=== PATIENT | female | born 1945 | race Caucasian/White ===

== ENCOUNTER → 2017-01-30 | Outpatient (CLI) | payer MEDICARE ==
--- NOTE | 2017-01-30 23:32 | MR ---
EXAMINATION TYPE: MR knee RT wo con DATE OF EXAM: 01/30/2017 COMPARISON: NONE HISTORY: Right Knee pain from going up stairs 3 days ago TECHNIQUE: Multiplanar, multisequence imaging of the right knee is performed without IV contrast. FINDINGS: There is a [id number] knee joint effusion. The anterior and posterior cruciate ligaments are in tact. The collateral ligaments are intact. There is mild spurring of the medial femoral and tibial co ndyles. There is minimal subchondral increased signal in the medial femoral and tibial condyles consi stent with early degenerative cyst formation. The lateral meniscus is intact. There is increased sign al within a large area of the posterior horn of the medial meniscus. There is some thinning and anter ior displacement of the anterior horn of the medial meniscus. There is no evidence of a fracture. IMPRESSION: Knee joint effusion. Complex intrasubstance tear of the posterior horn medial meniscus. osteoarthrit ic changes in the medial joint space. No fracture. Degenerative thinning of the anterior horn medial meniscus.
== END | disposition home or self-care (01) ==
LOC: RADMRIMAIN 17:32
PROVIDERS: ATTEND Family Medicine
DX: S83.231A Complex tear of medial meniscus, current injury, right knee, initial encounter (principal); M17.11 Unilateral primary osteoarthritis, right knee

== ENCOUNTER → 2017-02-20 | Outpatient (CLI) | payer MEDICARE ==
--- NOTE | 2017-02-20 10:16 | MM ---
Reason for exam: screening (asymptomatic). Last mammogram was performed 1 year ago. History: Patient is postmenopausal. Took estrogen for 6 years 2 months. Physical Findings: A clinical breast exam by your physician is recommended on an annual basis and results should be correlated with mammographic findings. MG 3D Screening Mammo W/Cad Bilateral CC and MLO view(s) were taken. Prior study comparison: February 15, 2016, bilateral MG 3d screening mammo w/cad. January 06, 2015, bilateral MG diagnostic mammo w CAD NATALIE. There are scattered fibroglandular densities. Finding: There are typically benign vascular, round calcifications. There is a chronic nodularity bilaterally. There is no dominant lesion. No significant changes in finding since February 15, 2016 and January 06, 2015. ASSESSMENT: Benign, BI-RAD 2 RECOMMENDATION: Routine screening mammogram of both breasts in 1 year.
== END | disposition home or self-care (01) ==
LOC: RADMAMWWP 09:40
PROVIDERS: ATTEND Obstetrics & Gynecology
DX: Z12.31 Encounter for screening mammogram for malignant neoplasm of breast (principal); Z13.220 Encounter for screening for lipoid disorders; Z13.1 Encounter for screening for diabetes mellitus; Z13.29 Encounter for screening for other suspected endocrine disorder
CPT/HCPCS: 84439; 80061; 82947; 84443; 77063; G0202

== ENCOUNTER → 2017-03-05 | Outpatient (CLI) | payer MEDICARE ==
[2017-03-05 11:36] LABS: EKG EKG PERFORMED
[2017-03-05 12:35] LABS: Anion Gap 9 mmol/L; Carbon Dioxide 24 mmol/L (22-30); Chloride 105 mmol/L (98-107); Potassium 4.2 mmol/L (3.5-5.1); Sodium 138 mmol/L (137-145)
[2017-03-05 12:41] LABS: Basophils # (A) 0.1 k/uL (0-0.2); Basophils % (A) 1 %; CH 31.6; CHCM 34.8; Eosinophils # (A) 0.1 k/uL (0-0.7); Eosinophils % (A) 1 %; HCT 39.9 % (34.0-46.0); HDW 2.54; HGB 13.3 gm/dL (11.4-16.0); Luc # (Auto) 0.11; Luc % (Auto) 1; Lymphocytes # (A) 1.9 k/uL (1.0-4.8); Lymphocytes % (A) 18 %; MCH 30.3 pg (25.0-35.0); MCHC 33.3 g/dL (31.0-37.0); Mean Platelet Volume 7.2; Monocytes # (A) 0.4 k/uL (0-1.0); Monocytes % (A) 4 %; Neutrophils # (A) 8.3 k/uL (1.3-7.7); Neutrophils % (A) 76 %; RBC 4.39 m/uL (3.80-5.40); RDW 13.8 % (11.5-15.5); WBC 10.8 k/uL (3.8-10.6); WBC (Perox) 11.33
== END | disposition home or self-care (01) ==
LOC: LABPAT 11:25
PROVIDERS: ATTEND Orthopaedic Surgery
DX: Z01.818 Encounter for other preprocedural examination (principal); Z01.812 Encounter for preprocedural laboratory examination; M23.91 Unspecified internal derangement of right knee
CPT/HCPCS: 80051; 85025; 93005

== ENCOUNTER 2017-03-07 07:33 | Day surgery (SDC) | payer MEDICARE ==
[2017-03-06 08:34] VITALS: BMI 28.8
--- NOTE | 2017-03-06 12:38 | HP ---
CHIEF COMPLAINT: Right knee pain. The patient is a 71 -year-old female who presents with persistent progressive right knee pain after an injury on 01/29/2017. She twisted her knee while playing golf. She notes persistent medial pain and giving way ever since. She has been taking ibuprofen and had an injection with only partial temporary relief. She notes she is limping. PAST MEDICAL HISTORY: Negative. PAST SURGICAL HISTORY: Significant for hysterectomy. Current medications: Ibuprofen. She denies drug allergies. FAMILY HISTORY: Significant for renal disease. SOCIAL HISTORY: Negative for current tobacco or alcohol use. 16 point review of systems otherwise reviewed and is not contributory. On examination, the patient is approximately 5 foot 3 inches. 160 pounds of mesomorphic habitus. HEENT: Exam is nonfocal. Neck is supple. She has pain with passive motion of the right hip. Straight leg raise is negative. Active motion of the right knee -6 to 125 degrees of flexion. She has a moderate effusion. Collaterals are stable. Kapil is negative. McMurrays elicits medial pain. Her distal neurovascular exam appears intact in the right lower extremity. Weightbearing, notch, lateral and merchant views of the right knee obtained in the office show moderate medial compartment narrowing. MRI report from 2016 of the right knee shows a posterior medial meniscal tear. IMPRESSION: 1. Right knee internal derangement with symptomatic medial meniscal tear. 2. Right knee moderate medial compartment osteoarthrosis. RECOMMENDATIONS: I talked to the patient at length regarding her treatment options. At this point, she remains quite symptomatic despite conservative measures. After thorough discussion, she opted to proceed with surgery. We will plan to proceed with arthroscopic evaluation with probable partial medial meniscectomy. We will likely perform that as an outpatient procedure. Risks and benefits were discussed at length in Laymans terms. FLORENTIN
[~2017-03-07 07:33] MED LIST: DEXAMETHASONE SOD PHOSPHATE 10 MG/ML 1 ML VIAL IV ONE; LIDOCAINE 1% 20 ML VIAL (10MG/ML) FOR IV START INTRADERMA PRN; ONDANSETRON 4 MG/2 ML VIAL IVP ONE; SCOPOLAMINE 1.5MG/72HR PATCH TRANSDERM ONE; ceFAZolin 2 GM in SODIUM CHLORIDE 0.9% 100 ML IVPB ONE
[2017-03-07] MEDS: LACTATED RINGERS 1,000 ML IV SCH ×2 (08:19→08:50)
[2017-03-07] MEDS ORDERED: MIDAZOLAM 2 MG/2 ML VIAL IVP ONE (08:30)
[2017-03-07] MEDS ORDERED: PROPOFOL 10 MG/ML 20 ML VIAL IV ONE (08:52)
[2017-03-07] MEDS ORDERED: MIDAZOLAM 2 MG/2 ML VIAL ONE (08:52)
[2017-03-07] MEDS ORDERED: LIDOCAINE 1% INJ 10MG/ML (20 ML MDV) ONE (08:52)
[2017-03-07] MEDS ORDERED: fentaNYL (PF) 50 MCG/ML 2 ML AMP ONE (08:52)
[2017-03-07] MEDS ORDERED: EPINEPHrine (PF) 1 ML in SODIUM CHLORIDE 0.9% IRRIGATIO 3,000 ML IRRIGATION ONE ×4 (09:15)
[2017-03-07] MEDS: HYDROmorphone 1 MG/ML 1 ML SYRINGE IVP PRN ×4 (09:45→10:09)
--- NOTE | 2017-03-07 09:48 | P.OP ---
Date of Procedure: 03/07/17 Preoperative Diagnosis: Right knee internal derangement Postoperative Diagnosis: Right knee posterior medial meniscal tear/middle one third lateral meniscal tear /grade 2 chondral injury distal medial portion lateral femoral condyle/reactive synovitis Procedure(s) Performed: Right knee arthroscopic partial medial meniscectomy/partial lateral meniscectomy /lateral femoral chondrectomy/partial synovectomy of the medial and lateral compartments Implants: Anesthesia: GETA Surgeon: Randolph Frausto Estimated Blood Loss (ml): 10 Pathology: none sent Condition: stable Disposition: PACU Indications for Procedure: The patient's a 71-year-old female presents with progressive right knee pain and mechanical symptoms for the past several months despite conservative measures. A discussion of the risks and benefits of operative intervention versus continued conservative measures was made with the patient. She opted to proceed with surgery. Operative risks to include infection, neurovascular injury, development of blood clots, possible incomplete resolution of symptoms, possible worsening symptoms and need for subsequent procedures was discussed. Informed consent was obtained. Operative Findings: As below Description of Procedure: The patient was brought to the operating room, and after induction of general anesthesia the right lower extremity was prepped and draped in normal fashion. A superior lateral portals made through a 3 mm skin incision superior and lateral to the patella. This was used for outflow. A moderate effusion was encountered. A lateral portal was made through a 5 mm vertical skin incision lateral to the patella tendon above the joint line. Diagnostic arthroscopy was performed. A medial portal was made through a similar incision medial to the patella tendon above the joint line. On inspection the medial compartment, she was noted to have a complex oblique tear involving the posterior most aspect the medial meniscus in the white-red junction. This was not amenable to repair. This was debrided back to a stable base with straight baskets and a motorized shaver. The edges were contoured. Grade 2-3 chondral changes were noted diffusely in the medial compartment. Reactive synovitis involving the anterior medial and lateral compartments was debrided with a motorized shaver. On inspection of the lateral compartment a she was noted have an oblique tear involving middle one third of the lateral meniscus in the white-white junction. This was debrided back to stable base with straight baskets and a motorized shaver. On inspection the patellofemoral articulation, there was chondral fibrillation however no loose chondral fragments. The gutters were clear debris. The knee was then thoroughly irrigated. The portals were closed with Steri-Strips. A sterile dressing was applied in addition to a compression stocking. The patient was awoken from general anesthesia and transferred to recovery room in good condition. Blood loss was estimated 10 mL. No complications were incurred.
[2017-03-07 09:54] VITALS: TEMP 97.6
[2017-03-07] MEDS ORDERED: KETOROLAC 30 MG/ML 1 ML VIAL IVP ONE (09:56)
[2017-03-07 10:38] VITALS: RESP 16
[2017-03-07 11:20] VITALS: BP 134/70; PULSE 67
== END 2017-03-07 12:44 | disposition home or self-care (01) ==
LOC: OR 07:33
PROVIDERS: ATTEND Orthopaedic Surgery
DX: S83.241A Other tear of medial meniscus, current injury, right knee, initial encounter (principal); S83.281A Other tear of lateral meniscus, current injury, right knee, initial encounter; S83.31XA Tear of articular cartilage of right knee, current, initial encounter; M65.9 Synovitis and tenosynovitis, unspecified; M17.11 Unilateral primary osteoarthritis, right knee; Z90.710 Acquired absence of both cervix and uterus; X50.1XXA Overexertion from prolonged static or awkward postures, initial encounter; Y93.53 Activity, golf
CPT/HCPCS: 29880; J2250; J1100; J0690; J2405; J0171; J2001; J3010; J1885; J1170; J2704

== ENCOUNTER → 2018-04-16 | Outpatient (CLI) | payer MEDICARE ==
--- NOTE | 2018-04-16 13:43 | BD ---
EXAMINATION TYPE: Axial Bone Density DATE OF EXAM: 04/16/2018 COMPARISON: DEXA bone scan February 15, 2016 CLINICAL HISTORY: Postmenopausal female Height: 62 Weight: 160.7 FRAX RISK QUESTIONS: Alcohol (3 or more units per day): no Family History (Parent hip fracture): no Glucocorticoids (More than 3mos): no (Ex: prednisone, prednisolone, methylprednisolone, dexamethasone, and hydrocortisone). History of Fracture in Adulthood: no Secondary Osteoporosis: 1. Type 1 Diabetes: no 2. Hyperthyroidism: no 3. Menopause before 45: no 4. Malnutrition: no 5. Chronic liver disease: no Rheumatoid Arthritis: no Current Tobacco Use: no RISK FACTORS HISTORY OF: Family History of Osteoporosis: no Active: yes Diet low in dairy products/other sources of calcium: no Postmenopausal woman: age 54 MEDICATIONS: blood pressure , diuretic, vitamins Additional History: EXAM MEASUREMENTS: Bone mineral densitometry was performed using the [employer]. Bone mineral density as measured about the Lumbar spine is: ----- L1-L4(G/cm2): 1.279 T Score Values are as follows: ----- L2: 0.0 ----- L3: 0.9 ----- L4: 2.0 ----- L1-L4: 0.8 Bone mineral density has: decreased -3.8 % since study of: 02.15.2016 Bone mineral density about the R hip (g/cm2): 0.884 Bone mineral density about the L hip (g/cm2): 0.913 T Score values are as follows: -----R Neck: -1.1 -----L Neck: -0.9 -----R Total: -0.1 -----L Total: 0.3 Bone mineral density has: decreased -5.4 % since study of: 02.15.2016 IMPRESSION: Osteopenia (T Score between -2.5 and -1) is present femoral neck level in right hip on current study. Bone density is decreased or diminished from prior. There is now slightly increased risk of fracture and the patient may be considered for treatment. Re-Screen 2-5 years. NOTE: T-SCORE=SD OF THE YOUNG ADULT MEAN.
--- NOTE | 2018-04-16 14:04 | MM ---
Reason for exam: screening (asymptomatic). Last mammogram was performed 1 year and 2 months ago. History: Patient is postmenopausal. Took estrogen for 6 years 2 months. Physical Findings: A clinical breast exam by your physician is recommended on an annual basis and results should be correlated with mammographic findings. MG 3D Screening Mammo W/Cad Bilateral CC and MLO view(s) were taken. Prior study comparison: February 20, 2017, bilateral MG 3d screening mammo w/cad. February 15, 2016, bilateral MG 3d screening mammo w/cad. There are scattered fibroglandular densities. There are benign appearing vascular calcifications bilaterally. There is no discrete abnormality. ASSESSMENT: Benign, BI-RAD 2 RECOMMENDATION: Routine screening mammogram of both breasts in 1 year.
== END | disposition home or self-care (01) ==
LOC: RADMAMWWP 09:21
PROVIDERS: ATTEND Obstetrics & Gynecology
DX: Z12.31 Encounter for screening mammogram for malignant neoplasm of breast (principal); M85.851 Other specified disorders of bone density and structure, right thigh
CPT/HCPCS: 77063; 77067; 77080

== ENCOUNTER → 2018-06-04 | Outpatient (CLI) | payer MEDICARE ==
[2018-06-04 10:49] LABS: Potassium 3.6 mmol/L (3.5-5.1)
[2018-06-04 10:55] LABS: Prothrombin Time 9.8 sec (9.0-12.0)
[2018-06-04 10:56] LABS: Basophils # (A) 0.1 k/uL (0-0.2); Basophils % (A) 1 %; Eosinophils # (A) 0.1 k/uL (0-0.7); Eosinophils % (A) 1 %; HCT 39.5 % (34.0-46.0); HGB 13.1 gm/dL (11.4-16.0); Lymphocytes # (A) 1.8 k/uL (1.0-4.8); Lymphocytes % (A) 17 %; MCH 30.1 pg (25.0-35.0); MCHC 33.2 g/dL (31.0-37.0); MCV 90.6 fL (80.0-100.0); Mean Platelet Volume 6.4; Monocytes # (A) 0.5 k/uL (0-1.0); Monocytes % (A) 5 %; Neutrophils # (A) 8.3 k/uL (1.3-7.7); Neutrophils % (A) 76 %; Platelet Count 314 k/uL (150-450); RBC 4.35 m/uL (3.80-5.40); WBC 10.9 k/uL (3.8-10.6)
--- NOTE | 2018-06-04 11:05 | XR ---
EXAMINATION TYPE: XR chest 2V DATE OF EXAM: 06/04/2018 COMPARISON: NONE HISTORY: Presurgical clearance TECHNIQUE: Frontal and lateral views of the chest are obtained. FINDINGS: Probable calcified nodule present right upper lobe measuring only 4 mm. No pneumothorax or pleural effusion, biapical pleural thickening suspected. Cardiac mediastinal silhouette, pulmonary v ascularity and matthew within normal limits. No evident airspace disease. IMPRESSION: Possible calcified granuloma right upper lobe. No acute cardiopulmonary disease is evide nt.
== END ==
LOC: LABPAT 09:49
PROVIDERS: ATTEND Orthopaedic Surgery
DX: Z01.818 Encounter for other preprocedural examination (principal); Z01.812 Encounter for preprocedural laboratory examination
CPT/HCPCS: 36415; 71046; 80051; 85025; 85610; 87070

== ENCOUNTER → 2018-06-09 | Outpatient (CLI) | payer MEDICARE ==
[~2018-06-09] MED LIST changes: +CAFFEINE CITRATE 60 MG/3 ML VIAL ONE; -DEXAMETHASONE SOD PHOSPHATE 10 MG/ML 1 ML VIAL IV ONE; +DEXTROSE 5% IN WATER 50 ML BAG ONE; -LIDOCAINE 1% 20 ML VIAL (10MG/ML) FOR IV START INTRADERMA PRN; -ONDANSETRON 4 MG/2 ML VIAL IVP ONE; +REGADENOSON 0.4 MG/5 ML SYRINGE IV ONE; -SCOPOLAMINE 1.5MG/72HR PATCH TRANSDERM ONE; -ceFAZolin 2 GM in SODIUM CHLORIDE 0.9% 100 ML IVPB ONE
--- NOTE | 2018-06-09 11:43 | EST ---
EXERCISE STRESS DATE OF SERVICE: 06/09/2018 AGE: 73 SEX: Female HT: 5'2" WT: 155 pounds PROTOCOL: Lexiscan Cardiolite STAGE: DURATION OF EXERCISE: HEART RATE REST: 59 BLOOD PRESSURE REST: 125/66 MAXIMUM HEART RATE ACHIEVED: 72 MAXIMUM BLOOD PRESSURE: 134/57 85% MPHR: 100% MPHR: METS: INDICATIONS: Abnormal EKG CLINICAL INFORMATION: Baseline EKG shows sinus rhythm, normal axis, normal intervals. Patient was given intravenous Lexiscan as per protocol. Did not have chest pain or diagnostic ST-segment depression. CONCLUSIONS: 1. Negative stress test by EKG criteria. 2. Cardiolite portion of the stress test will be reported separately. MMODL / IJN: [id number] /
--- NOTE | 2018-06-09 16:28 | NM ---
EXAMINATION TYPE: NM stress lexiscan cardiolite DATE OF EXAM: 06/09/2018 COMPARISON: NONE HISTORY: Abnormal EKG TECHNIQUE: After the intravenous administration of 9.86 mCi Tc 99m Sestamibi - Cardiolite resting SP ECT images acquired 45 minutes post injection. The patient received 0.4mg Lexiscan, 24.3 mCi Tc 99m Sestamibi - Stress images obtained [address] injection FINDINGS: No fixed or reversible perfusion defects are evident. Gated wall motion is unremarkable. Ejection fra ction of 54% is normal. IMPRESSION: No stress-induced ischemic changes.
== END | disposition home or self-care (01) ==
LOC: RADNMMAIN 07:47
PROVIDERS: ATTEND Family Medicine
DX: R94.31 Abnormal electrocardiogram [ECG] [EKG] (principal)
CPT/HCPCS: 93017; 78452; A9500; J0706; J2785

== ENCOUNTER → 2019-05-11 | Outpatient (CLI) | payer MEDICARE ==
[2019-05-11 11:28] LABS: T4, Free (Free Thyroxine) 0.98 ng/dL (0.78-2.19)
--- NOTE | 2019-05-11 12:06 | MM ---
Reason for exam: screening (asymptomatic). Last mammogram was performed 1 year and 1 month ago. History: Patient is postmenopausal. Took estrogen for 6 years 2 months. Physical Findings: A clinical breast exam by your physician is recommended on an annual basis and results should be correlated with mammographic findings. MG 3D Screening Mammo W/Cad Bilateral CC, MLO, and XCCL view(s) were taken. Prior study comparison: April 16, 2018, bilateral MG 3d screening mammo w/cad. February 20, 2017, bilateral MG 3d screening mammo w/cad. The breast tissue is heterogeneously dense. This may lower the sensitivity of mammography. Benign appearing vascular bilateral calcifications. There is a partially obscured right upper outer quadrant far posterior depth mass, likely lymph node. This was seen on 2018 exam. No suspicious additional abnormality. ASSESSMENT: Incomplete: need additional imaging evaluation, BI-RAD 0 RECOMMENDATION: Ultrasound of the right breast. (upper outer quadrant) [facility] will attempt to contact patient to return for ultrasound.
== END | disposition home or self-care (01) ==
LOC: RADMAMWWP 09:30
PROVIDERS: ATTEND Obstetrics & Gynecology
DX: Z12.31 Encounter for screening mammogram for malignant neoplasm of breast (principal); Z13.220 Encounter for screening for lipoid disorders; Z13.1 Encounter for screening for diabetes mellitus
CPT/HCPCS: 36415; 77063; 77067; 80061; 82947; 84439; 84443

== ENCOUNTER → 2019-05-27 | Outpatient (CLI) | payer MEDICARE ==
--- NOTE | 2019-05-27 11:05 | USB ---
Reason for exam: additional evaluation requested from abnormal screening. History: Patient is postmenopausal. Took estrogen for 6 years 2 months. Physical Findings: Nurse did not find any significant physical abnormalities on exam. US Breast Workup Limited RT Right limited breast ultrasound including focal area of concern, retroareolar and axilla demonstrates a 0.3 x 0.3 x 1.3cm lesion at 12 o'clock. These results were verbally communicated with the patient and result sheet given to the patient on 05/27/19. ASSESSMENT: Benign, BI-RAD 2 RECOMMENDATION: Return to routine screening mammogram schedule for both breasts.
== END | disposition home or self-care (01) ==
LOC: RADUSWWP 09:53
PROVIDERS: ATTEND Obstetrics & Gynecology
DX: R92.8 Other abnormal and inconclusive findings on diagnostic imaging of breast (principal)

== ENCOUNTER → 2020-05-17 | Outpatient (CLI) | payer MEDICARE ==
--- NOTE | 2020-05-18 11:43 | MM ---
Reason for exam: screening (asymptomatic). Last mammogram was performed 1 year ago. History: Patient is postmenopausal. Took estrogen for 6 years 2 months. Physical Findings: A clinical breast exam by your physician is recommended on an annual basis and results should be correlated with mammographic findings. MG 3D Screening Mammo W/Cad Bilateral CC and MLO view(s) were taken. Prior study comparison: May 11, 2019, bilateral MG 3d screening mammo w/cad. April 16, 2018, bilateral MG 3d screening mammo w/cad. February 20, 2017, bilateral MG 3d screening mammo w/cad. February 15, 2016, bilateral MG 3d screening mammo w/cad. There is chronic nodularity bilaterally. No significant changes when compared with prior studies. ASSESSMENT: Benign, BI-RAD 2 RECOMMENDATION: Routine screening mammogram of both breasts in 1 year.
--- NOTE | 2020-05-18 20:29 | BD ---
EXAMINATION TYPE: Axial Bone Density DATE OF EXAM: 05/17/2020 COMPARISON: 04.16.2018 CLINICAL HISTORY: 75 YR OLD FEMALE....ICD-10 CODE: Z78.0 POST ROJAS, Z13.82, M85.851 Height: 61.3 Weight: 160 FRAX RISK QUESTIONS: Current Tobacco Use: NONE NOW RISK FACTORS HISTORY OF: Active: YES Postmenopausal woman: YES AT 53 Take estrogen and/or progesterone medications: FOR ONLY 6 YRS IN THE PAST Hyperparathyroidism: NO Adrenal Insufficiency: NO MEDICATIONS: Additional Medications: BP MEDS, ZOLOFT, REFLUX MEDS NEEDED, CALCIUM AND VIT D, Additional History: RENAL, HX OF KIDNEY STONES, HYST AFTER ROJAS, BORDERLINE DIABETIC, EXAM MEASUREMENTS: Bone mineral densitometry was performed using the [employer]. Bone mineral density as measured about the Lumbar spine is: ----- L1-L4(G/cm2): 1.445 T Score Values are as follows: ----- L1: 1.4 ----- L2: 1.2 ----- L3: 2.3 ----- L4: 3.3 ----- L1-L4: 2.2 Bone mineral density has: Increased 12.2% since study of: 04.16.2018 Bone mineral density about the R hip (g/cm2): 1.021 Bone mineral density about the L hip (g/cm2): 1.064 T Score values are as follows: -----R Neck: -0.7 -----L Neck: -0.5 -----R Total: 0.1 -----L Total: 0.4 Bone mineral density has: Increased 2.6% since study of: 04.16.2018 FRAX%s: THERE IS A 9.1% CHANCE FOR A MAJOR OSTEOPOROTIC FX AND A 1.2% FOR HIP.....PROBABILITY FOR F X IN 10 YRS TIME IMPRESSION: Normal (Values between +1 and -1 indicate normal bone mass). Consider repeating this study in 5 year s or sooner if there is some new clinical indication. NOTE: T-SCORE=SD OF THE YOUNG ADULT MEAN.
== END | disposition home or self-care (01) ==
LOC: RADMAMWWP 10:44
PROVIDERS: ATTEND Obstetrics & Gynecology
DX: Z12.31 Encounter for screening mammogram for malignant neoplasm of breast (principal); Z13.820 Encounter for screening for osteoporosis; M85.851 Other specified disorders of bone density and structure, right thigh; M85.852 Other specified disorders of bone density and structure, left thigh; Z78.0 Asymptomatic menopausal state
CPT/HCPCS: 77063; 77067; 77080

== ENCOUNTER → 2021-05-08 | Outpatient (CLI) | payer MEDICARE ==
--- NOTE | 2021-05-08 12:47 | ECHOF ---
Referral Reason:R94.31 abnormal EKG MEASUREMENTS -------- HEIGHT: 157.5 cm WEIGHT: 70.3 kg BP: RVIDd: 3.2 cm (< 3.3) IVSd: 1.4 cm (0.6 - 1.1) LVIDd: 3.8 cm (3.9 - 5.3) LVPWd: 1.2 cm (0.6 - 1.1) IVSs: 1.4 cm LVIDs: 2.8 cm LVPWs: 1.6 cm LAESV Index (A-L): 20.23 ml/m Ao Diam: 2.9 cm (2.0 - 3.7) AV Cusp: 1.1 cm (1.5 - 2.6) LA Diam: 3.6 cm (2.7 - 3.8) MV EXCURSION: 16.920 mm (> 18.000) MV EF SLOPE: 79 mm/s (70 - 150) EPSS: 0.3 cm MV E Dev: 0.73 m/s MV DecT: 252 ms MV A Dev: 1.03 m/s MV E/A Ratio: 0.71 AV maxP.69 mmHg AV meanP.24 mmHg RAP: 5.00 mmHg RVSP: 32.55 mmHg FINDINGS -------- Sinus rhythm. This was a technically adequate study. The left ventricular size is normal. There is mild concentric left ventricular hypertrophy. Overa ll left ventricular systolic function is normal with, an EF between 55 - 60 %. The diastolic fillin g pattern is normal for the age of the patient 13.07. The right ventricle is normal in size. Normal LA size by volume 22+/-6 ml/m2. The right atrial size is normal. Interatrial and interventricular septum intact. There is moderate aortic valve sclerosis. There is no evidence of aortic regurgitation. There is mild aortic stenosis present. Peak/mean gradient across the Aortic Valve is 23.69mmHg / 14.24mmHg. Mild mitral regurgitation is present. Mild tricuspid regurgitation present. There is no evidence of pulmonary hypertension. The right v entricular systolic pressure, as measured by Doppler, is 32.55mmHg. Trace/mild (physiologic) pulmonic regurgitation. The aortic root size is normal. Normal inferior vena cava with normal inspiratory collapse consistent with estimated right atrial pre ssure of 5 mmHg. There is no pericardial effusion. CONCLUSIONS -------- 1. The left ventricular size is normal. 2. There is mild concentric left ventricular hypertrophy. 3. Overall left ventricular systolic function is normal with, an EF between 55 - 60 %. 4. The diastolic filling pattern is normal for the age of the patient 13.07 5. There is moderate aortic valve sclerosis. 6. There is mild aortic stenosis present. 7. Peak/mean gradient across the Aortic Valve is 23.69mmHg / 14.24mmHg. 8. Mild mitral regurgitation is present. 9. Mild tricuspid regurgitation present. 10. Trace/mild (physiologic) pulmonic regurgitation. STAFFING COORDINATOR: Gem Veronica RDCS
== END | disposition home or self-care (01) ==
LOC: RADECHMAIN 08:23
PROVIDERS: ATTEND Family Medicine
DX: I51.7 Cardiomegaly (principal); I35.0 Nonrheumatic aortic (valve) stenosis; I35.8 Other nonrheumatic aortic valve disorders; I34.0 Nonrheumatic mitral (valve) insufficiency; R94.31 Abnormal electrocardiogram [ECG] [EKG]
CPT/HCPCS: 93306

== ENCOUNTER → 2021-06-13 | Outpatient (CLI) | payer MEDICARE ==
--- NOTE | 2021-06-13 09:16 | MM ---
Reason for exam: screening (asymptomatic). Last mammogram was performed 1 year and 1 month ago. History: Patient is postmenopausal. Took estrogen for 6 years 2 months. Physical Findings: A clinical breast exam by your physician is recommended on an annual basis and results should be correlated with mammographic findings. MG 3D Screening Mammo W/Cad Bilateral CC and MLO view(s) were taken. Prior study comparison: May 17, 2020, bilateral MG 3d screening mammo w/cad. May 11, 2019, bilateral MG 3d screening mammo w/cad. There are scattered fibroglandular densities. There is chronic nodularity in the right breast. Benign vascular calcifications. No significant changes when compared with prior studies. ASSESSMENT: Benign, BI-RAD 2 RECOMMENDATION: Routine screening mammogram of both breasts in 1 year.
== END | disposition home or self-care (01) ==
LOC: RADMAMWWP 07:30
PROVIDERS: ATTEND Obstetrics & Gynecology
DX: Z12.31 Encounter for screening mammogram for malignant neoplasm of breast (principal)
CPT/HCPCS: 77063; 77067

== ENCOUNTER → 2022-07-30 | Outpatient (CLI) | payer MEDICARE ==
--- NOTE | 2022-07-30 10:49 | MM ---
Reason for Exam: Screening (asymptomatic). Last mammogram was performed 1 year(s) and 1 month(s) ago. Patient History: Menarche at age 11. First Full-Term at age 16. Hysterectomy at age 53. Postmenopausal. Estrogen for 6 years, 2 months, until age 62. Risk Values: Laina 5 year model risk: 1.2%. NCI Lifetime model risk: 2.2%. Prior Study Comparison: 02/20/2017 Bilateral Screening Mammogram, [facility]. 04/16/2018 Bilateral Screening Mammogram, [facility]. 05/11/2019 Bilateral Screening Mammogram, [facility]. 05/17/2020 Bilateral Screening Mammogram, [facility]. 06/13/2021 Bilateral Screening Mammogram, [facility]. Tissue Density: There are scattered fibroglandular densities. Findings: Analyzed By CAD. Chronic nodularity anterior right breast. Scattered benign redemonstrated. Unchanged scattered areas of asymmetric density left breast. No significant change from prior exams. Overall Assessment: Benign, BI-RAD 2 Management: Screening Mammogram of both breasts in 1 year. 1. Patient should continue monthly self breast exams. 2. A clinical breast exam by your physician is recommended on an annual basis. 3. This exam should not preclude additional follow-up of suspicious palpable abnormalities. Electronically signed and approved by: Surekha Tavares M.D. Radiologist
--- NOTE | 2022-07-30 17:49 | BD ---
EXAMINATION TYPE: Axial Bone Density DATE OF EXAM: 07/30/2022 CLINICAL HISTORY: 77 years year old Female. ICD-10 CODE: Z78.0 N95.1 POST ROJAS WITHOUT HRT, POST ME NO SYMP Height: 5 FT 2 IN Weight: 161 FRAX RISK QUESTIONS: Alcohol (3 or more units per day): NO Family History (Parent hip fracture): NO Glucocorticoids (More than 3mos): NO (Ex: prednisone, prednisolone, methylprednisolone, dexamethasone, and hydrocortisone). History of Fracture in Adulthood: NO Secondary Osteoporosis: 1. Type 1 Diabetes: NO 2. Hyperthyroidism: NO 3. Menopause before 45: NO 4. Malnutrition: NO 5. Chronic liver disease: NO Rheumatoid Arthritis: NO Current Tobacco Use: NO RISK FACTORS HISTORY OF: Surgery to Spine/Hip(right/left)/Wrist (right/left): NO Family History of Osteoporosis: NO Active: YES Diet low in dairy products/other sources of calcium: NO Postmenopausal woman: YES Take estrogen and/or progesterone medications: NO LONGER Lost more than 2 inches in height since high school: NO Frequent falls: NO Poor Health: GOOD Hyperparathyroidism: NO Adrenal Insufficiency: NO MEDICATIONS: Additional Medications: HYDROCHLOROT, METOPROLOL, ROSUVASTATIN ,NORCO, IBUPROFEN, CALCIUM, Additional History: EXAM MEASUREMENTS: Bone mineral densitometry was performed using the [facility]. Bone mineral density as measured about the Lumbar spine is: ----- L1-L4(G/cm2): 1.321 T Score Values are as follows: ----- L1: -0.2 ----- L2: 0.7 ----- L3: 1.2 ----- L4: 2.3 ----- L1-L4: 1.2 Bone mineral density has: DECREASED -7.3 % since study of: 2019 Bone mineral density about the R hip (g/cm2): 0.906 Bone mineral density about the L hip (g/cm2): 0.965 T Score values are as follows: -----R Neck: -1.0 -----L Neck: -0.5 -----R Total: -0.2 -----L Total: 0.1 Bone mineral density has: DECREASED -3.7 % since study of: 2019 FRAX%s: The graph provided illustrates a 10.6 % chance for a major osteoporotic fx and a 1.8 % chance for the hips probability for fx in 10 years time. IMPRESSION: Normal (Values between +1 and -1 indicate normal bone mass). Note that measurements at the right hip are bordering on osteopenia. Consider repeating this study in 5 years or sooner if there is some new clinical indication. NOTE: T-SCORE=SD OF THE YOUNG ADULT MEAN.
== END | disposition home or self-care (01) ==
LOC: RADBDWWP 09:44
PROVIDERS: ATTEND Obstetrics & Gynecology
DX: Z12.31 Encounter for screening mammogram for malignant neoplasm of breast (principal); M85.851 Other specified disorders of bone density and structure, right thigh; Z78.0 Asymptomatic menopausal state
CPT/HCPCS: 77063; 77067; 77080

== ENCOUNTER → 2023-01-23 | Outpatient (CLI) | payer MEDICARE ==
--- NOTE | 2023-01-23 14:19 | XR ---
EXAMINATION TYPE: XR Hip Limited 2 views LT, XR knee limited 2 views LT, XR lumbar spine 3 views DATE OF EXAM: 01/23/2023 Comparison: None Clinical History: 77-year-old female R52 pain Findings: Left hip: There is severe endstage, [id number] degenerative change in the left hip with complete loss of supe rolateral cartilage joint space. Subchondral sclerosis and marginal spurring is present. Pelvis limit s. No acute fracture or dislocation. Left knee: There is meniscal chondrocalcinosis. There may be mild joint space narrowing in the medial compartmen t. Trace joint effusion nonspecific. Extensor mechanism is intact. No acute fracture, subluxation, or dislocation. Lumbar spine: 5 lumbar type vertebral bodies. Hypertrophic facet arthropathy mid to lower lumbar spine with a degen erative grade 1, nearly grade 2 anterolisthesis at L4-L5. There is vascular disease degenerative thin param of the interspinous ligaments in the lower lumbar spine. Mild multilevel degenerative disc disea se with disc bulging and mild endplate spondylosis. Vertebral body heights are preserved. Atheroscler otic calcifications throughout the abdominal aorta. Impression: Lumbar spine: 1. Advanced hypertrophic facet arthropathy with a degenerative grade 1, nearly grade 2 anterolisthesi s at L4-L5. 2. Mild degenerative disc disease throughout the lumbar spine. 3. Baastrup's disease. Left hip: 4. Severe, end-stage [id number] left hip OA. No acute osseous abnormality seen. Left knee: 5. Mild degenerative joint space narrowing in the medial compartment. Trace knee joint effusion nonsp ecific, probably reactive. 6. Meniscal chondrocalcinosis which can be idiopathic. In this case, less likely related to CPPD. 7. No acute osseous abnormality seen.
== END | disposition home or self-care (01) ==
LOC: RADXRMAIN 12:07
PROVIDERS: ATTEND Family Medicine
DX: M47.816 Spondylosis without myelopathy or radiculopathy, lumbar region (principal); M43.16 Spondylolisthesis, lumbar region; M51.36 Other intervertebral disc degeneration, lumbar region; M48.26 Kissing spine, lumbar region; M16.12 Unilateral primary osteoarthritis, left hip; M17.12 Unilateral primary osteoarthritis, left knee; M11.262 Other chondrocalcinosis, left knee
CPT/HCPCS: 72100; 73501

== ENCOUNTER → 2023-03-11 | Outpatient (CLI) | payer MEDICARE ==
--- NOTE | 2023-03-12 22:52 | MR ---
EXAMINATION TYPE: MR hip LT wo con DATE OF EXAM: 03/11/2023 COMPARISON: Radiograph 01/23/2023 HISTORY: 77-year-old female M70.62 TROCHANTERIC BURSITIS, LEFT HIP, Left hip pain, trochanteric bursi tis. TECHNIQUE: Multiplanar, multisequence images of the left hip were obtained without IV contrast. FINDINGS: No evidence for acute fracture or AVN. However, there is severe, endstage, bone on bone degenerative change at the left hip with complete loss of superolateral cartilage and joint space. Secondary irreg ularity of the subchondral bony surface of the acetabular roof and weightbearing femoral head. Extens darius reactive subchondral marrow edema on both sides of the joint as well as cystic change and margina l spurring. Asymmetric reactive small to moderate left hip joint effusion.. Mild degenerative changes suggested at the right hip. Mild degenerative change pubic symphysis. Mild degenerative change at the bilateral SI joints characterized by some subchondral marrow edema, r ight greater than left and mild spurring. Some asymmetric degenerative disc disease and facet arthropathy greater towards the right at L5-S1. The bilateral hamstrings and rectus femoris origins as well as the iliopsoas and gluteal insertions a ppear intact. Symmetric course, caliber, and signal intensity of the sciatic nerves. There is sigmoid diverticulosis. Uterus surgically absent. No abnormal fluid collection the pelvis. Patchy red marrow hyperplasia is present and can be seen in setting of anemia, obesity, smoking, and chronic disease. No suspicious bone marrow replacement. IMPRESSION: 1. MRI findings in keeping with endstage, [id number] left hip OA. Extensive reactive osseous edema on both sides of the joint, reactive joint effusion, and early bony remodeling along the weightbearin g portions of the joint. 2. 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 3. No significant gluteal insertional tendinopathy or trochanteric bursitis.
== END | disposition home or self-care (01) ==
LOC: RADMRIMAIN 11:27
PROVIDERS: ATTEND Family Medicine
DX: M16.12 Unilateral primary osteoarthritis, left hip (principal); M70.62 Trochanteric bursitis, left hip; M46.1 Sacroiliitis, not elsewhere classified

== ENCOUNTER → 2023-04-09 | Outpatient (CLI) | payer MEDICARE ==
[2023-04-09 16:03] LABS: BUN/Creat Ratio 19.45 Ratio (12.00-20.00); Blood Urea Nitrogen 21.4 mg/dL (9.0-27.0); Calcium 10.6 mg/dL (8.7-10.3); Carbon Dioxide 22.6 mmol/L (21.6-31.8); Chloride 102 mmol/L (96-109); Glucose 100 mg/dL (70-110); Potassium 3.9 mmol/L (3.5-5.5); Sodium 139 mmol/L (135-145)
[2023-04-09 16:29] LABS: Basophils # (A) 0.08 X 10*3/uL (0.00-0.10); Basophils % (A) 0.7 %; Eosinophils # (A) 0.15 X 10*3/uL (0.04-0.35); Eosinophils % (A) 1.3 %; HCT 35.8 % (37.2-46.3); Lymphocytes # (A) 2.36 X 10*3/uL (0.90-5.00); Lymphocytes % (A) 20.7 %; MCH 30.8 pg (27.0-32.0); MCHC 33.5 d/dL (32.0-37.0); MCV 91.8 FL (80.0-97.0); Mean Platelet Volume 11.2 FL (9.5-12.2); Monocytes # (A) 0.67 X 10*3/uL (0.20-1.00); Monocytes % (A) 5.9 %; NRBC Per 100 WBC 0 X 10*3/uL (0.00-0.01); Neutrophils # (A) 8.09 X 10*3/uL (1.80-7.70); Neutrophils % (A) 71.1 %; Platelet Count 267 X 10*3/uL (140-440); WBC 11.38 X 10*3/uL (4.50-10.00)
[2023-04-09 19:01] LABS: INR <0.93 sec (0.93-1.11); Prothrombin Time 10.3 sec (9.9-11.9)
== END | disposition home or self-care (01) ==
LOC: LABPAT 10:34
PROVIDERS: ATTEND Orthopaedic Surgery
DX: Z01.812 Encounter for preprocedural laboratory examination (principal); Z22.322 Carrier or suspected carrier of Methicillin resistant Staphylococcus aureus; M16.12 Unilateral primary osteoarthritis, left hip; Z79.899 Other long term (current) drug therapy
CPT/HCPCS: 80048; 85025; 85610; 87070

== ENCOUNTER 2023-04-18 07:47 | Day surgery (SDC) | payer MEDICARE ==
[2023-04-15 15:51] VITALS: BMI 27.5
--- NOTE | 2023-04-17 08:04 | P.HPOR ---
History of Present Illness H&P Date: 04/17/23 Chief Complaint: Left hip pain The patient is a 77-year-old female presents with progressive left hip pain for the past year worsening over the past 6 months. She is having pain in the groin and thigh with weightbearing activities. She notes that it bothers her at night. She notes she's been limping. She does use a cane. She's tried medications as well as Review of Systems As per HPI Past Medical History Past Medical History: Hyperlipidemia, Hypertension, Osteoarthritis (OA), Thyroid Disorder Additional Past Medical History / Comment(s): hx kidney stone., pain left hip. History of Any Multi-Drug Resistant Organisms: None Reported Past Surgical History: Bladder Surgery, Hysterectomy, Joint Replacement Additional Past Surgical History / Comment(s): bladder suspension, Total Right Knee., cataracts with lens implant Past Anesthesia/Blood Transfusion Reactions: No Reported Reaction Past Psychological History: No Psychological Hx Reported Smoking Status: Former smoker Past Alcohol Use History: None Reported Additional Past Alcohol Use History / Comment(s): quit smoking yrs ago, smoked on and off less than 1ppd , started smoking age 28. Past Drug Use History: None Reported - Past Family History Mother Family Medical History: Renal Disease Father Family Medical History: CVA/TIA Medications and Allergies Home Medications Medication Instructions Recorded Confirmed Type Ibuprofen 800 mg PO BID PRN 03/06/17 04/15/23 History Vitamin E (Dl,Tocopheryl Acet) 400 unit PO DAILY 03/06/17 04/15/23 History [Vitamin E] Docusate [Colace] 100 mg PO BID PRN 06/11/18 04/15/23 History Metoprolol Succinate [Toprol Xl] 50 mg PO DAILY 06/11/18 04/15/23 History hydroCHLOROthiazide [Hydrodiuril] 50 mg PO DAILY 06/11/18 04/15/23 History Acetaminophen [Tylenol Arthritis] 1,300 mg PO DIRECTED PRN 04/15/23 04/15/23 History Calcium Carbonate [Calcium] 1,200 mg PO DAILY 04/15/23 04/15/23 History Cyanocobalamin (Vitamin B-12) 1,000 mcg PO DAILY 04/15/23 04/15/23 History [Vitamin B-12] HYDROcodone/APAP 7.5-325MG [[place] 1 tab PO BID PRN 04/15/23 04/15/23 History 7.5-325] Loratadine [Claritin] 10 mg PO DAILY 04/15/23 04/15/23 History Multivit with Calcium,Iron,Min 1 each PO DAILY 04/15/23 04/15/23 History [Women's Multivitamin] Rosuvastatin Calcium 5 mg PO DAILY 04/15/23 04/15/23 History Allergies Allergy/AdvReac Type Severity Reaction Status Date / Time No Known Allergies Allergy Verified 04/15/23 15:54 Physical Examination - Hip left Gait: antalgic Tenderness with palpation: anterior Pain with motion: internal rotation and hip flexion ROM: flexion: 70 degrees ROM: internal rotation: 0 degrees (With pain) ROM: external rotation: 40 degrees Strength: extension: 5/5 Strength: flexion: 5/5 Strength: abduction: 5/5 Tests: impingement tests: positive Results The patient is a well-developed well-nourished female proximal 5 foot 2, 155 pounds of endomorphic habits. HEENT exam is nonfocal, neck supple. She has painful passive motion of the left hip. Clinically she has half centimeters s hortening of the left lower extremity. Her distal neurovascular appears intact in the left lower extremity. - Diagnostic results Hip x-ray: image reviewed (2 views of the left hip obtain the office show severe left hip posterior arthrosis with [id number]-[id number] changes along with subchondral sclerosis.) Assessment and Plan Assessment: Left hip severe osteoarthrosis Plan: I talked with the patient length regarding her condition all treatment options. At this point she's quite symptomatic and limited because of pain related to her osteoarthrosis despite attempted conservative measures. After thorough discussion she opts to proceed with surgery. We will plan to proceed with left total hip arthroplasty utilizing an anterior approach. We will institute DVT prophylaxis postoperatively.
[~2023-04-18 07:47] MED LIST changes: +ACETAMINOPHEN TAB 500 MG TAB PO PRN; -CAFFEINE CITRATE 60 MG/3 ML VIAL ONE; -DEXTROSE 5% IN WATER 50 ML BAG ONE; +MELOXICAM 7.5 MG TAB PO PRN; -REGADENOSON 0.4 MG/5 ML SYRINGE IV ONE; +TRANEXAMIC 1,000 MG/100ML-NACL 1,000 MG in SALINE 1 100ML.BAG IVPB PRN
[2023-04-18] MEDS ORDERED: LIDOCAINE 1% (10MG/ML) FOR IV START INTRADERMA PRN (08:01)
[2023-04-18] MEDS ORDERED: MIDAZOLAM 2 MG/2 ML VIAL IV PRN (08:01)
[2023-04-18] MEDS ORDERED: HYDROmorphone 0.5 MG/0.5 ML SYRINGE IVP PRN ×3 (08:01→11:33)
[2023-04-18] MEDS ORDERED: DEXAMETHASONE SOD PHOSPHATE 4 MG/ML 1 ML VIAL IV ONE (08:01)
[2023-04-18] MEDS ORDERED: ONDANSETRON 4 MG/2 ML VIAL IVP ONE (08:01)
[2023-04-18] MEDS: LACTATED RINGERS 1,000 ML IV SCH (08:13)
[2023-04-18 08:23] VITALS: RESP 16
[2023-04-18] MEDS ORDERED: DEXAMETHASONE SOD PHOSPHATE 4 MG/ML 1 ML VIAL ONE (09:34)
[2023-04-18] MEDS ORDERED: ROPIVACAINE 5 MG/ML 30 ML VIAL ONE (09:34)
[2023-04-18] MEDS ORDERED: TRANEXAMIC 1,000 MG/100ML-NACL PREMIX BAG ONE (09:34)
[2023-04-18] MEDS ORDERED: PHENYLEPHRINE-0.9% NACL SYG 1,000 MCG/10 ML SYRINGE ONE (09:34)
[2023-04-18] MEDS ORDERED: MIDAZOLAM 2 MG/2 ML VIAL ONE (09:34)
[2023-04-18] MEDS ORDERED: PROPOFOL 10 MG/ML 20 ML VIAL IV ONE (09:34)
[2023-04-18] MEDS ORDERED: fentaNYL (PF) 50 MCG/ML 2 ML AMP ONE (09:34)
[2023-04-18] MEDS ORDERED: SODIUM CHLORIDE 0.9% (PF) 10 ML VIAL ONE (09:34)
[2023-04-18] MEDS ORDERED: ceFAZolin 1,000 MG in SODIUM CHLORIDE 0.9% 1,000 ML IRRIGATION ONE (10:14)
[2023-04-18] MEDS ORDERED: LACTATED RINGERS 1,000 ML IV ONE (11:21)
[2023-04-18] MEDS ORDERED: HYDROcodone/APAP 5-325MG 1 EACH TAB PO PRN (11:33)
[2023-04-18] MEDS ORDERED: HYDROcodone/APAP 7.5-325MG 1 EACH TAB PO PRN (11:33)
[2023-04-18] MEDS ORDERED: MAGNESIUM HYDROXIDE 2,400 MG/30 ML CUP PO PRN (11:33)
[2023-04-18] MEDS ORDERED: NALOXONE 0.4 MG/ML 1 ML VIAL IV PRN (11:33)
--- NOTE | 2023-04-18 11:59 | P.OP ---
Date of Procedure: 04/18/23 Preoperative Diagnosis: Left hip severe osteoarthrosis Postoperative Diagnosis: Same Procedure(s) Performed: Left total hip arthroplastypress-fitanterior approach Implants: Depuy [place] size 101 25collared standard femoral stem, 36+1.5 cobalt chrome femoral head, 52 mm [place] acetabular shell with neutral polyethylene liner. A 6.5 x 30 mm cancellus screw was utilized. Anesthesia: regional, spinal Surgeon: Randolph Frausto Packing Line Worker #1: Bo Figueroa Estimated Blood Loss (ml): 100 Pathology: none sent Condition: stable Disposition: PACU Indications for Procedure: The patient is a 77-year-old female who presents with progressive left hip pain secondary osteoarthrosis despite conservative measures. He discussion of the risks and benefits of operative intervention versus continued conservative measures was made with patient. She opted to proceed with surgery. Operative risks to include infection, neurovascular injury, fracture, leg length discrepancy, instability, possible component loosening/failure and need for subsequent procedures was discussed. Informed consent was obtained. Operative Findings: As below Description of Procedure: The patient was brought to the operating room, and after induction of spinal anesthesia was placed supine on the Michelle table. Positioning was checked with fluoroscopy. The left hip was then prepped and draped in a normal fashion. A 12 cm incision was then made starting 2 fingerbreadths distal and 3 finger breaths posterior to the ASIS in line with the proximal femur. The skin was incised sharply. Subcutaneous tissues were divided sharply. Electrocautery was used for hemostasis. The fascia was split in line with skin incision. The interval between the sartorius and tensor fascia coty was then bluntly d eveloped. The posterior fascia was opened with electrocautery. The lateral circumflex vessels were identified and cauterized prior to sectioning. A retractor was placed along the superior femoral neck as well as the anterior acetabular rim. A wide capsulotomy was performed. The neck cut was then made at a 45 angle to the shaft approximately 1 1/2 cm above the level of the lesser trochanter. The head was extracted. Attention was then paid towards preparing the acetabulum. Anterior and posterior retractors were placed. The remaining capsular labral tissue sharply debrided clearly defining the acetabular margins. I began reaming with a 45 mm reamer taking care to initially medialize then reaming at 45 of abduction and 20 of anteversion. Sequential reaming is performed up to 51 mm. A trial 52 mm acetabular shell was inserted in the same orientation and was fully seated. There was good rim fit and stability. Positioning was checked with fluoroscopy. The final T2 mm acet abular shell was inserted again at 45 of abduction and 20 of anteversion. This was fully seated. There was good rim fit and stability. I did place a posterior superior 6.5 mm x 30 mm cancellus screw with good purchase. Again fluoroscopy was used to check the adequacy of placement. A neutral polyethylene liner was gently impacted. Care was taken to avoid any soft tissue interposition. Pulsatile lavage was utilized. Attention was then paid towards preparing the proximal femur. The central region was cleared of soft tissue. A canal finder was used to find the femoral canal. Sequential broaching was performed up to size 10 taking care to lateralize proximally. A calcar mill was used to fashion the medial calcar. There was good rotational stability. A 125 standard neck along with a 36 mm +1.5 head was placed. The hip was gently reduced. Fluoroscopy was used to check the adequacy of positioning along with leg lengths. I felt both were good. The hip was gently dislocated. The trial components were removed. The final size 10 collared standard press-fit femoral stem was inserted parallel to the posterior cortex. This was fully seated and there was good rotational stability. A 36 mm +1.5 head was placed. This was gently impacted. The hip was then gently reduced. Final fluoroscopic view showed adequate placement implant along with adventist of leg length. Stability was checked with 80 of external rotation and 60 of extension of the right hip. The wound was irrigated with sterile lavage. The fascia was closed with running 0 Vicryl suture. There was minimal drainage therefore a deep drain was not placed. The second dose of IV TXA was given. The subcutaneous tissues were reapproximated interrupted 2-0 Vicryl sutures. The skin was reapproximated with 3-0 subcuticular strata fix suture. Skin tape and adhesive was applied. A sterile dressing was applied. The patient was then awoken from sedation and transferred to recovery room in good condition. Blood loss was estimated at 100 mL. No complications were incurred. Sponge and needle counts were correct at the end of the case. Bo ÁLVAREZ assisted during the major components is case to include exposure, bone resection, implantation, and closure.
--- NOTE | 2023-04-18 12:08 | XR ---
EXAMINATION TYPE: XR Hip Limited LT DATE OF EXAM: 04/18/2023 CLINICAL HISTORY: Postoperative evaluation TECHNIQUE: Single portable view of the left hip was submitted. FINDINGS: Noted are changes of total hip arthroplasty with femoral and acetabular components appearin g well seated. Alignment is anatomic. Postsurgical soft tissue changes are evident. IMPRESSION: Satisfactory postoperative alignment
--- NOTE | 2023-04-18 13:19 | P.ANPRN ---
Procedure Note - Anesthesia - Nerve Block Performed Left Erector Spinae Single Time Out Performed: Yes Date of Procedure: 04/18/23 Procedure Start Time: Procedure Stop Time: Location of Patient: PreOp Indication: Acute Post-Operative Pain, Requested by Surgeon Sedation Type: Sedate with meaningful contact maintained Preparation: Sterile Prep Position: Prone Needle Types: Pajunk Needle Gauge: 21 Ultrasound used to visualize needle placement: Yes Ultrasound used to observe medication spread: Yes Blood Aspirated: No Pain Paresthesia on Injection Noted: No Resistance on Injection: Normal Image Stored and Saved: Yes Events: Uneventful and Well Tolerated (Ropivacaine 0.5% 15 mL plus dexamethasone 4 mg was normal saline 10 mL given at L1 on the left side)
--- NOTE | 2023-04-18 13:25 | FL ---
Intraoperative/procedural fluoroscopic services were provided. Total fluoroscopy time is 34 seconds w ith a total of 1 submitted images to PACS. Please see the operative/procedural note for further detai ls. DAP: 1.6991 Gycm2
[2023-04-18] MEDS ORDERED: DOCUSATE 100 MG CAP PO PRN (16:04)
[2023-04-18] MEDS: HYDROcodone/APAP 7.5-325MG 1 EACH TAB PO PRN ×2 (17:03→23:33)
[2023-04-18] MEDS ORDERED: SENNOSIDES-DOCUSATE SODIUM 1 EACH TAB PO SCH (21:00)
[2023-04-19] MEDS: HYDROcodone/APAP 7.5-325MG 1 EACH TAB PO PRN ×2 (06:11→11:37)
[2023-04-19] MEDS: LACTATED RINGERS 1,000 ML IV SCH (08:20)
[2023-04-19] MEDS ORDERED: CALCIUM CARBONATE 500 MG CHEWABLE PO SCH (09:00)
[2023-04-19] MEDS ORDERED: MULTIVITAMINS, THERA 1 EACH TAB PO SCH (09:00)
[2023-04-19] MEDS ORDERED: ATORVASTATIN 10 MG TAB PO SCH (09:00)
[2023-04-19] MEDS ORDERED: RIVAROXABAN 10 MG TAB PO SCH (09:00)
[2023-04-19] MEDS ORDERED: LORATADINE 10 MG TAB PO SCH (09:00)
[2023-04-19] MEDS ORDERED: CYANOCOBALAMIN 500 MCG TAB PO SCH (09:00)
[2023-04-19] MEDS ORDERED: METOPROLOL SUCCINATE (ER) 50 MG TAB.ER.24H PO SCH (09:00)
[2023-04-19 09:08] VITALS: BP 101/59; PULSE 69; TEMP 98.5
[2023-04-19 11:23] LABS: Basophils # (A) 0.02 X 10*3/uL (0.00-0.10); Basophils % (A) 0.2 %; Eosinophils # (A) 0 X 10*3/uL (0.04-0.35); Eosinophils % (A) 0 %; HCT 29.8 % (37.2-46.3); HGB 9.8 d/dL (12.0-15.0); Lymphocytes # (A) 2.02 X 10*3/uL (0.90-5.00); Lymphocytes % (A) 15.8 %; MCH 30.7 pg (27.0-32.0); MCHC 32.9 d/dL (32.0-37.0); MCV 93.4 FL (80.0-97.0); Mean Platelet Volume 10.6 FL (9.5-12.2); Monocytes % (A) 7.8 %; NRBC Per 100 WBC 0 X 10*3/uL (0.00-0.01); Neutrophils # (A) 9.72 X 10*3/uL (1.80-7.70); Neutrophils % (A) 75.9 %; Platelet Count 230 X 10*3/uL (140-440); RBC 3.19 X 10*6/uL (4.10-5.20); RDW 12.5 % (11.5-14.5)
--- NOTE | 2023-04-19 13:28 | P.PN ---
Subjective Progress Note Date: 04/19/23 Principal diagnosis: Status post direct anterior left total hip arthroplasty Patient was evaluated today at bedside, she is resting in her hospital bed. She was able to ambulate with physical therapy, this to include stairs. She does note some generalized discomfort in the hip after therapy. She feels that the pain medication is currently helping. She denies headaches, lightheadedness, chest pain or shortness of breath. Objective - Vital Signs Vital signs: Vital Signs Temp 98.5 F 04/19/23 08:30 Pulse 69 04/19/23 08:30 Resp 16 04/19/23 08:30 BP 101/59 04/19/23 08:30 Pulse Ox 93 L 04/19/23 08:30 FiO2 Intake & Output 04/18/23 04/19/23 04/19/23 18:59 06:59 18:59 Intake Total 1051 Output Total 100 Balance 951 Weight 68.4 kg Intake: IV 1051 Output: Stool 0 Estimated Blood Loss 100 Other: Voiding Method Toilet Bedpan # Voids 1 3 1 - Exam Left lower extremity: Incision is clean, dry, and intact. The exofin fusion tape is in good condition. There is minimal soft tissue swelling and ecchymosis surrounding the medial and lateral aspects of the incision. Calf is soft, no tenderness with palpation. Plantar flexion, dorsiflexion, EHL, FHL are intact. Sensory exam to light touch throughout the extremity is intact, dorsal pedis pulses 2+. - Labs CBC & Chem 7: 04/19/23 06:04 Labs: Abnormal Lab Results - Last 24 Hours (Table) 04/19/23 Range/Units 06:04 WBC 12.80 H (4.50-10.00) X 10*3/uL RBC 3.19 L (4.10-5.20) X 10*6/uL Hgb 9.8 L (12.0-15.0) d/dL Hct 29.8 L (37.2-46.3) % Neutrophils # 9.72 H (1.80-7.70) X 10*3/uL Eosinophils # 0 L (0.04-0.35) X 10*3/uL Assessment and Plan Assessment: Postoperative day #1 status post direct anterior left total hip arthroplasty Acute blood loss anemia, expected surgical outcome Plan: Pain control, will plan for discharge on [place] 7.5 mg/325 mg DVT prophylaxis, aspirin 81 mg twice a day for 30 days Ferrous sulfate 325 mg twice a day for a month regarding anemia Wound care instructions were discussed, this including showering We'll hold off on home nurse/therapist, patient will continue with daily home exercises Icing and elevating techniques were discussed Medical recommendations appreciated Discharge planning: Patient stable for discharge home today Time with Patient: Less than 30
--- NOTE | 2023-04-19 13:32 | P.DS ---
Providers Date of admission: 04/18/2023 Expected date of discharge: 04/19/23 Attending physician: Randolph Frausto Consults: 04/18/23 11:33 Consult Physician Routine Consulting Provider: Casey Stallings Reason/Comments: medical management s/p left total hip arthroplasty Do you want consulting provider notified?: Yes Primary care physician: Casey Stallings Hospital Course: Date of admission: 04/18/2023 Date of discharge: 04/19/2023 Admission diagnosis: Status post direct anterior left total hip arthroplasty Discharge diagnosis: Same Attending physician: Dr. Frausto Surgical procedures: Direct anterior left total hip arthroplasty Brief history: Patient is a 78-year-old female with a history of progressive primary left hip osteoarthritis. At this point patient has failed conservative treatment measures and has opted to proceed with a elective left direct anterior total hip arthroplasty. Hospital course: Details of patient's surgery can be found in operative report. Patient tolerated the procedure well and was subsequently transported to orthopedic floor. Patient's orthopeidc and medical care was provided daily. Patient had daily laboratory tests performed for evaluation of overall blood counts. Patient had daily physical therapy to include strengthening range of motion as well as education with walker ambulation. Patient was treated with Xarelto for their postoperative DVT prophylaxis during their inpatient stay. Patient was noted to have a relatively uneventful postoperative course. Patient reported satisfactory pain control with oral pain medications by postoperative day 0. Patient showed satisfactory progress with physical therapy. Patient moved steadily through the program and had no difficulty meeting the goals by postoperative day 1. Given patient's otherwise satisfactory course and having met physical therapy goals, plan is to discharge patient home on postoperative day 1. Discharge condition/disposition: Patient will be discharged home in stable condition. Discharge medications: Instructions are given on resumption of patient's normal daily medications per primary care recommendation, in addition patient will be prescribed . Discharge instructions: 1. Wound care and infection precautions, keep incision dry and covered while showering, no lotions, creams, moisturizers. No soaking, tubs, pools, hottubs. Do not scrub over the incision. 2. Weight-bear as tolerated with walker / cane until follow-up. 3. Ice and elevate when necessary. Do not exceed 20 minutes per hour with ice pack. 4. Utilize compression sleeve until seen at first follow up appointment. 5. Visiting nursing care. 6. Home physical therapy. 7. Pain meds and anticoagulants per prescription. 8. Pain medication has potential to cause constipation. Increase oral fluid and fiber intake. Contact primary care provider if you have not had a bowel movement within 48 hours after discharge 9. No anti-inflammatory medication until discussed at first post operative visit, this including Motrin, Aleve, Mobic, Diclofenac. 10. Follow up in office at 2 weeks postop with Mike Burnham PA-C/Bo Wills 11. Follow up with your primary care doctor 7-10 days after discharge. 12. Contact [facility] with any questions, . Procedures: Direct anterior left total hip arthroplasty Patient Condition at Discharge: Good Plan - Discharge Summary Discharge Rx Participant: No New Discharge Prescriptions: New Aspirin [Adult Low Dose Aspirin EC] 81 mg PO BID #60 tab Ferrous Sulfate [Iron (65 MG Elemental)] 325 mg PO BID #60 tab No Action Vitamin E (Dl,Tocopheryl Acet) [Vitamin E] 400 unit PO DAILY Ibuprofen 800 mg PO BID PRN PRN Reason: Pain Docusate [Colace] 100 mg PO BID PRN PRN Reason: Constipation Metoprolol Succinate [Toprol Xl] 50 mg PO DAILY hydroCHLOROthiazide [Hydrodiuril] 50 mg PO DAILY HYDROcodone/APAP 7.5-325MG [[place] 7.5-325] 1 tab PO BID PRN PRN Reason: Pain Rosuvastatin Calcium 5 mg PO DAILY Multivit with Calcium,Iron,Min [Women's Multivitamin] 1 each PO DAILY Calcium Carbonate [Calcium] 1,200 mg PO DAILY Acetaminophen [Tylenol Arthritis] 1,300 mg PO DIRECTED PRN PRN Reason: Pain Loratadine [Claritin] 10 mg PO DAILY Cyanocobalamin (Vitamin B-12) [Vitamin B-12] 1,000 mcg PO DAILY Discharge Medication List Ibuprofen 800 mg PO BID PRN 03/06/17 [History] Vitamin E (Dl,Tocopheryl Acet) [Vitamin E] 400 unit PO DAILY 03/06/17 [History] Docusate [Colace] 100 mg PO BID PRN 06/11/18 [History] Metoprolol Succinate [Toprol Xl] 50 mg PO DAILY 06/11/18 [History] hydroCHLOROthiazide [Hydrodiuril] 50 mg PO DAILY 06/11/18 [History] Acetaminophen [Tylenol Arthritis] 1,300 mg PO DIRECTED PRN 04/15/23 [History] Calcium Carbonate [Calcium] 1,200 mg PO DAILY 04/15/23 [History] Cyanocobalamin (Vitamin B-12) [Vitamin B-12] 1,000 mcg PO DAILY 04/15/23 [History] HYDROcodone/APAP 7.5-325MG [[place] 7.5-325] 1 tab PO BID PRN 04/15/23 [History] Loratadine [Claritin] 10 mg PO DAILY 04/15/23 [History] Multivit with Calcium,Iron,Min [Women's Multivitamin] 1 each PO DAILY 04/15/23 [History] Rosuvastatin Calcium 5 mg PO DAILY 04/15/23 [History] Aspirin [Adult Low Dose Aspirin EC] 81 mg PO BID #60 tab 04/19/23 [Rx] Ferrous Sulfate [Iron (65 MG Elemental)] 325 mg PO BID #60 tab 04/19/23 [Rx] Follow up Appointment(s)/Referral(s): Bo Figueroa PAC [PHYSICIAN SUPERVISOR [employer]TING] - 2 Weeks Patient Instructions/Handouts: Anterior Hip Replacement (DC) Activity/Diet/Wound Care/Special Instructions: Orthopedic Discharge Instructions: 1. Wound care and infection precautions, keep incision dry and covered while showering, no lotions, creams, moisturizers. No soaking, pools, hot tubs. Do not scrub over incision. 2. Weight-bear as tolerated with walker / cane until follow-up. 3. Ice and elevate when necessary. Do not exceed 20 minutes per hour with ice pack. 4. Utilize compression sleeve until seen at first follow up appointment. 5. Pain meds and anticoagulants per prescription. 6. Pain medication has potential to cause constipation. Increase oral fluid and fiber intake. Contact primary care provider if you have not had a bowel movement within 48 hours after discharge. 7. No anti-inflammatory medication until discussed at first post operative visit, this including Motrin, Aleve, Mobic, Diclofenac. 8. Follow up in office at 2 weeks postop with Mike Burnham PA-C / Bo Figueroa PA-C 9. Follow up with your primary care doctor 7-10 days after discharge. 10. Contact [facility] with any questions, . Keep incision clean, dry, intact. While showering, cover fusion tape with Saran wrap. Keep fusion tape on until follow-up appointment in office in 2 weeks. Discharge Disposition: HOME SELF-CARE
[2023-04-21] MEDS ORDERED: MIDAZOLAM 2 MG/2 ML VIAL IVP ONE ×2 (09:25)
== END 2023-04-19 14:45 | disposition home or self-care (01) ==
LOC: OR 07:47 → EDSTATUS 09:25 → 4SSUR 11:58 → OR 04-19 14:45
PROVIDERS: ATTEND Orthopaedic Surgery
DX: M16.12 Unilateral primary osteoarthritis, left hip (principal); I10 Essential (primary) hypertension; E78.5 Hyperlipidemia, unspecified; Z87.442 Personal history of urinary calculi; Z90.710 Acquired absence of both cervix and uterus; Z87.891 Personal history of nicotine dependence; Z82.3 Family history of stroke; Z79.899 Other long term (current) drug therapy
CPT/HCPCS: 97162; 86900; 86901; 85025; 86850; 73501; 27130; 64999; J1100; J0690 ×3; J2405; J1170

== ENCOUNTER → 2023-07-23 | Outpatient (CLI) | payer MEDICARE ==
--- NOTE | 2023-07-24 09:40 | MR ---
EXAMINATION TYPE: MR lumbar spine wo/w con DATE OF EXAM: 07/23/2023 4:36 PM CLINICAL INDICATION:Female, 78 years old with history of M51.36 INTERVERTEBRAL DISC DEGENERATION, LUM BAR RE, Low back pain into both legs COMPARISON: None TECHNIQUE: Multi planar, multi sequence imaging was performed utilizing: T1-weighted, T2-weighted, a nd turbo inversion recovery imaging of the lumbar spine. IV Contrast: 7 cc Gadavist. (None if empty) FINDINGS: Alignment: The lumbar vertebral bodies have preserved heights with grade 1 anterolisthesis of L4 on L 5. Cord: The conus medullaris and the distal spinal cord appear unremarkable with regards to their signa l intensity and morphology. Perineural cysts distal right S2 vertebral body measuring up to 13 x 18 m m . No abnormal postcontrast enhancement. Bones/Discs: Mild degeneration changes throughout the spine with osteophyte formation and facet joint arthropathy. Intervertebral disc signal is maintained. Pseudoarthrosis of the spinous processes. No abnormal postcontrast enhancement. T12-L1: No evidence of significant spinal canal stenosis or neural foraminal stenosis. L1-L2: Disc bulge and facet joint arthropathy result in mild spinal canal and moderate left and mild to moderate. Bilateral neural foraminal stenosis. L2-L3: Disc bulge and facet joint arthropathy result in mild spinal canal and moderate bilateral neur al foraminal stenosis. L3-L4: Disc bulge and facet joint arthropathy result in mild spinal canal and moderate bilateral neur al foraminal stenosis. L4-L5: Disc uncovering from grade 1 anterolisthesis and facet joint arthropathy with moderate to branden re spinal canal stenosis and moderate bilateral neural foraminal stenosis. L5-S1: The disc is rounded posterior morphology without significant spinal canal stenosis. Facet join t arthropathy with mild bilateral neural foraminal stenosis. No significant spinal canal or neural foraminal stenosis in the remainder of the visualized levels. Other findings: Scattered colonic diverticula. IMPRESSION: 1. Grade 1 anterolisthesis of L4 and L5 without pars and articularis defects. There is at least mode rate to severe spinal canal stenosis and moderate bilateral neural foraminal stenosis. 2. Disc degeneration changes with multilevel neural foraminal stenosis. 3. 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 4. No abnormal postcontrast enhancement.
== END | disposition home or self-care (01) ==
LOC: RADMRIMAIN 15:28
PROVIDERS: ATTEND Family Medicine
DX: M51.36 Other intervertebral disc degeneration, lumbar region (principal); M43.16 Spondylolisthesis, lumbar region; M48.061 Spinal stenosis, lumbar region without neurogenic claudication; M99.73 Connective tissue and disc stenosis of intervertebral foramina of lumbar region
CPT/HCPCS: 72158; A9585

== ENCOUNTER → 2023-08-27 | Outpatient (CLI) | payer MEDICARE ==
--- NOTE | 2023-08-27 10:36 | MM ---
Reason for Exam: Screening (asymptomatic). Last mammogram was performed 1 year(s) and 1 month(s) ago. Patient History: Menarche at age 11. First Full-Term at age 16. Hysterectomy at age 53. Postmenopausal. Estrogen for 6 years, 2 months, until age 62. Risk Values: Laina 5 year model risk: 1.2%. NCI Lifetime model risk: 2.0%. Prior Study Comparison: 02/15/2016 Bilateral Screening Mammogram, [facility]. 02/20/2017 Bilateral Screening Mammogram, [facility]. 04/16/2018 Bilateral Screening Mammogram, [facility]. 05/11/2019 Bilateral Screening Mammogram, [facility]. 05/17/2020 Bilateral Screening Mammogram, [facility]. 06/13/2021 Bilateral Screening Mammogram, [facility]. 07/30/2022 Bilateral MG 3D screening mammo w/cad, [facility]. Tissue Density: There are scattered fibroglandular densities. Findings: Analyzed By CAD. Unchanged areas of asymmetric density on the right. Benign vascular calcifications redemonstrated in both sides along with a few secretory calcifications on the left. No significant change from prior exams. Overall Assessment: Benign, BI-RAD 2 Management: Screening Mammogram of both breasts in 1 year. . Patient should continue monthly self-breast exams. A clinical breast exam by your physician is recommended on an annual basis. This exam should not preclude additional follow-up of suspicious palpable abnormalities. Note on Laina scores and lifetime risk: 1. A Laina score greater than 3% is considered moderate risk. If this is the case, consider specialist referral to assess eligibility for a risk reducing agent. 2. If overall lifetime risk for the development of breast cancer is 20% or higher, the patient may qualify for future screening with alternating mammogram and breast MRI. Electronically signed and approved by: Surekha Tavares M.D. Radiologist
== END | disposition home or self-care (01) ==
LOC: RADMAMWWP 09:57
PROVIDERS: ATTEND Obstetrics & Gynecology
DX: Z12.31 Encounter for screening mammogram for malignant neoplasm of breast (principal)
CPT/HCPCS: 77063; 77067

== ENCOUNTER → 2024-11-30 | Outpatient (CLI) | payer MEDICARE ==
--- NOTE | 2024-11-30 13:17 | MM ---
Reason for Exam: Screening (asymptomatic). Last mammogram was performed 1 year(s) and 3 month(s) ago. Patient History: Menarche at age 11. First Full-Term at age 16. Hysterectomy at age 53. Postmenopausal. Estrogen for 6 years, 2 months, until age 62. Risk Values: Laina 5 year model risk: 1.2%. NCI Lifetime model risk: 1.8%. Prior Study Comparison: 04/16/2018 Bilateral Screening Mammogram, [facility]. 05/11/2019 Bilateral Screening Mammogram, [facility] 05/17/2020 Bilateral Screening Mammogram, [facility]. 06/13/2021 Bilateral Screening Mammogram, [facility]. 07/30/2022 Bilateral MG 3D screening mammo w/cad, [facility]. 08/27/2023 Bilateral MG 3D screening mammo w/cad, [facility]. Tissue Density: The breasts are extremely dense, which lowers the sensitivity of mammography. Findings: Benign appearing vascular calcification bilaterally is redemonstrated. There is no suspicious new group of microcalcifications or new suspicious mass in either breast. Overall Assessment: Benign, BI-RAD 2 Management: Screening Mammogram of both breasts in 1 year. . Patient should continue monthly self-breast exams. A clinical breast exam by your physician is recommended on an annual basis. This exam should not preclude additional follow-up of suspicious palpable abnormalities. Note on Laina scores and lifetime risk: 1. A Laina score greater than 3% is considered moderate risk. If this is the case, consider specialist referral to assess eligibility for a risk reducing agent. 2. If overall lifetime risk for the development of breast cancer is 20% or higher, the patient may qualify for future screening with alternating mammogram and breast MRI. [facility], , 11/30/2024 1:14 PM. Electronically signed and approved by: Mario Sandoval M.D.
== END | disposition home or self-care (01) ==
LOC: RADMAMWWP 09:22
PROVIDERS: ATTEND Family Medicine
DX: Z12.31 Encounter for screening mammogram for malignant neoplasm of breast (principal); R92.343 Mammographic extreme density, bilateral breasts; Z78.0 Asymptomatic menopausal state
CPT/HCPCS: 77063; 77067